=== PATIENT | male | born 1975 | race Two or more races ===

== ENCOUNTER 2020-12-17 19:29 | Emergency (ER) | payer SELFPAY ==
[~2020-12-17] VITALS: Ht 188 cm; Wt 109.0 kg
[2020-12-17] MEDS ORDERED: LORAZEPAM 2MG/ML CPJ IM STA (19:58)
[2020-12-17] MEDS ORDERED: SODIUM CHLORIDE 0.9% 1,000 ML IV ONE (20:00)
[2020-12-17] MEDS ORDERED: DIPHENHYDRAMINE 50MG/ML VIAL IM ONE (21:45)
[2020-12-17] MEDS ORDERED: HALOPERIDOL LACTATE 5MG/ML VIAL IM ONE (21:45)
[2020-12-17 22:56] LABS: BASOPHILS % 0.4 % (0.0-2.0); EOSINOPHILS % 0.1 % (0.0-5.0); HEMATOCRIT. 32.5 % (42.0-52.0); HEMOGLOBIN. 10.5 g/dL (14.0-18.0); LYMPHOCYTES % 17.5 % (20.0-50.0); MEAN CORPUSCULAR HEMOGLOBIN 21.9 pg (28.0-32.0); MEAN CORPUSCULAR VOLUME 68.2 fL (80.0-94.0); MEAN PLATELET VOLUME 8.1 fl (7.4-10.4); PLATELET 253 x1000/uL (130-400); RED BLOOD CELL COUNT 4.76 mill/uL (4.7-6.1); RED CELL DISTRIBUTION WIDTH 17.3 % (11.6-14.6)
[2020-12-17 23:03] LABS: CHLORIDE 107 mEq/L (98-107)
[2020-12-17 23:09] LABS: ETHANOL BLOOD < 10 mg/dL
[2020-12-17 23:23] LABS: PLATELET ESTIMATE NORMAL
[2020-12-17 23:25] LABS: CREATINE KINASE 3348 IU/L (39-308)
[2020-12-18] MEDS ORDERED: SODIUM CHLORIDE 0.9% 1,000 ML IV NR (01:45)
[2020-12-18] MEDS ORDERED: DIPHENHYDRAMINE 50MG/ML VIAL IM ONE (02:45)
[2020-12-18] MEDS ORDERED: LORAZEPAM 2MG/ML CPJ IM ONE (02:45)
[2020-12-18] MEDS ORDERED: SODIUM CHLORIDE 0.9% 1,000 ML IV ONE (02:45)
[2020-12-18] MEDS ORDERED: HALOPERIDOL LACTATE 5MG/ML VIAL IM ONE (02:45)
[2020-12-18 03:39] LABS: CLARITY URINE CLEAR (CLEAR); COLOR URINE YELLOW (YELLOW); KETONES URINE 1+ (NEGATIVE); LEUKOCYTE ESTERASE URINE NEGATIVE (NEGATIVE); NITRITE URINE NEGATIVE (NEGATIVE); OCCULT BLOOD URINE NEGATIVE (NEGATIVE); PROTEIN URINE 1+ (NEGATIVE); UROBILINOGEN URINE 0.2 E.U./dL (0.2-1.0)
[2020-12-18 03:58] LABS: *AMPHETAMINES SCREEN URINE PRESUMTIVE POSITIVE (NEGATIVE); *BARBITURATES SCREEN URINE NEGATIVE (NEGATIVE); *BENZODIAZEPINES SCREEN URINE PRESUMTIVE POSITIVE (NEGATIVE)
[2020-12-18 03:59] LABS: CANNABINOID URINE SCREEN NEGATIVE (NEGATIVE); METHADONE URINE SCREEN NEGATIVE (NEGATIVE); OPIATES URINE SCREEN NEGATIVE (NEGATIVE); PHENCYCLIDINE URINE SCREEN NEGATIVE (NEGATIVE)
[2020-12-18 04:56] LABS: CREATINE KINASE 2934 IU/L (39-308)
[2020-12-18 05:17] LABS: *COCAINE SCREEN URINE NEGATIVE (NEGATIVE)
[2020-12-18 08:50] VITALS: BP 118/62
== END 2020-12-18 09:27 | disposition home or self-care (01) ==
LOC: ER 19:29
DX: G92 Toxic encephalopathy (principal); F19.10 Other psychoactive substance abuse, uncomplicated; I10 Essential (primary) hypertension; M62.82 Rhabdomyolysis; Z13.9 Encounter for screening, unspecified
CPT/HCPCS: 36415; 80053; 80305; 80307; 80320; 80329; 81003; 82550; 85025; 96360; 96361; 96372; 99285; J1200; J1630; J2060; J7030; G0480